=== PATIENT | male | born 1995 | race Caucasian/White ===

== ENCOUNTER 2019-11-22 01:15 | Emergency (ER) | payer MEDICAID ==
[~2019-11-22] VITALS: Ht 190.5 cm; Wt 109.0 kg
[2019-11-22 01:18] VITALS: BP 139/91
[2019-11-22] MEDS ORDERED: CLIN150C8 PO (01:31)
[2019-11-22] MEDS ORDERED: HYDR-3965 PO (01:31)
[2019-11-22] MEDS ORDERED: HYDROcodone/acetaminophen 5mg/325mg tablet PO ONE (01:35)
== END 2019-11-22 01:45 | disposition home or self-care (01) ==
LOC: ER 01:16
DX: K02.9 Dental caries, unspecified (principal); K08.89 Other specified disorders of teeth and supporting structures; F12.90 Cannabis use, unspecified, uncomplicated
CPT/HCPCS: 99283

== ENCOUNTER 2025-04-27 00:38 | Emergency (ER) | payer MEDICAID ==
[~2025-04-27] VITALS: Ht 190.5 cm; Wt 127.0 kg
[~2025-04-27 00:38] MED LIST: CLIN-214 PO
[2025-04-27 01:25] LABS: MEAN PLATELET VOLUME 6.7 FL (7.4-10.4); RED CELL DISTRIBUTION WIDTH 14.2 % (11.5-14.5)
--- NOTE | 2025-04-27 01:30 | RADIOLOGY REPORT ---
CHEST RADIOGRAPH Indication: CP Technique: Single frontal view of the chest was obtained COMPARISON: None FINDINGS: Lines and Tubes: None Lungs: No evidence of consolidation. Minimal left basilar atelectasis. Pleura: No effusion. No pneumothorax. Cardiomediastinal contours: Unremarkable Bones: Unremarkable IMPRESSION: 1. No acute disease. Minimal left basilar atelectasis.
[2025-04-27 01:38] LABS: CREATININE 0.94 MG/DL (0.60-1.10); PRO BRAIN NATRIURETIC PEPTIDE 41 PG/ML (0-125); TOTAL CARBON DIOXIDE 31.2 MMOL/L (24-32); eCRCL 137 ML/MIN; eGFR > 90 ML/MIN
--- NOTE | 2025-04-27 06:16 | Physician Documentation ---
History of Present Illness ~ Chief Complaint: Chest Pain Stated Complaint: CHEST DISCOMFORT Time Seen by MD: 06:15 Primary Medical Doctor: LORENA JONES Mode of Arrival: EMS HPI 29-year-old gentleman presenting with epigastric abdominal pain that started about 11:00 p.m. last night. He states that he would radiate slightly up into his chest. He states that yesterday he took several shots of liquor and also took a hit from his marijuana Bong. States that the pain was concerning so he came to the ED. The pain was sharp and did not relent. Patient was able to sleep in the ED for several hours before being seen and states that now his pain has resolved. Reports that she does have a history of a hiatal hernia, gastritis and Carlson's esophagus and takes Protonix regularly and also follows with a GI specialist. No reports of any nausea, vomiting, fever, chills or any other associated symptoms. Medication Reconciliation Allergies: Coded Allergies: No Known Allergies (Unverified , 04/27/25) Scheduled Clindamycin HCl (Clindamycin HCl CAPSULE), 1 CAP PO TID Past Medical History Past Medical History: *GI/HEPATOBILIARY*, Gastritis, GERD Alcohol Use: Occasionally Drug Use: marijuana Lives with: Family Lives In: Home Review of Systems All Other Systems at this time: Reviewed and Negative Physical Exam Vital Signs: Temperature: 98.0, Heart Rate: 68, Respiratory Rate: 12, BP: 126/80, Pulse Oximetry: 96, Weight: 127.000 Oxygen Flow Rate: 0 Physical Exam I have reviewed the triage vitals. CONST: Well developed and well nourished. In no acute distress HENT: Head Atraumatic EYES: Pupils are equal, round and reactive to light. Normal conjunctiva NECK: Normal range of motion. Supple. CARDIO: Normal rate and regular rhythm. No murmurs, rubs, or gallops. S1, S2. PULM/CHEST: No respiratory distress. Lungs clear to auscultation. No wheeze ABD: Soft and nontender. Nondistended. Bowel sounds normal. No guarding. : Exam deferred MSK: No edema. No deformity. NEURO: Alert and oriented to person, place and time. Moving all extremities SKIN: Warm and dry. PSYCH: Normal mood and affect. Good eye contact. Progress Results/Orders Results/Orders Completed Orders - BRITTNEY ROMERO MD Potassium Cl Sr Tablet (K-Dur Tablet) (04/27/25 06:53) Vital Signs 04/27/25 04/27/25 04/27/25 04/27/25 00:49 02:43 03:49 07:12 Temp 98.0 98.0 Pulse 79 68 68 Resp 20 16 12 12 B/P (MAP) 127/89 126/80 (95) 146/85 Pulse Ox 94 96 97 O2 Flow Rate 0 Laboratory Tests Test 04/27/25 00:59 04/27/25 02:41 04/27/25 06:10 White Blood Count 9.2 Red Blood Count 4.61 L Hemoglobin 15.4 Hematocrit 43.8 Mean Corpuscular Volume 95.1 Mean Corpuscular Hemoglobin 33.3 H Mean Corpuscular Hemoglobin Concent 35.1 Red Cell Distribution Width 14.2 Platelet Count 286 Mean Platelet Volume 6.7 L Neutrophils (%) (Auto) 57.1 Lymphocytes (%) (Auto) 33.0 Monocytes (%) (Auto) 7.1 Eosinophils (%) (Auto) 1.9 Basophils (%) (Auto) 0.9 Neutrophils # (Auto) 5.3 Lymphocytes # (Auto) 3.0 Monocytes # (Auto) 0.7 Eosinophils # (Auto) 0.2 Basophils # (Auto) 0.1 CBC Comment Sodium Level 138 Potassium Level 3.2 L Chloride Level 100 Carbon Dioxide Level 31.2 Anion Gap 7 L Blood Urea Nitrogen 13 Creatinine 0.94 Estimated GFR/1.73 m2 > 90 BUN/Creatinine Ratio 13.8 Glucose Level 94 Calcium Level 8.5 Troponin I High Sensitivity 6 6 6 Pro-B-Type Natriuretic Peptide 41 Albumin 4.0 Chemistry Comments Troponin I High Sens Percent Delta 0 0 Troponin I Hi Sens Absolute Change 0 0 EKG/XRAY/CT/US/VASC/MRI EKG : Additional Comment EKG as interpreted by ED MD indicating normal sinus rhythm with a rate of 75 beats per minute, normal axis, no ischemia Medical Decision Making Additional Information This is a 29-year-old male presenting with epigastric abdominal pain. His lab workup is indicative only of a low potassium level of 3.2. This was replaced with 40 mEq of potassium chloride. P.o. The remainder of his lab work including three rounds of troponins are normal. Additionally he had an EKG which was unremarkable. The patient's symptoms self-resolved in her my assessment he was symptom free. His vitals are also normal. Given his history of a hiatal hernia, Carlson's esophagus and gastritis with some GERD I suspect that this is the likely etiology for his symptoms once again especially given the fact that he used some liquor and marijuana yesterday which provoked his symptoms. I advised the patient to abstain from further alcohol or drug use as this is worsening the issue especially given his history. He was recommended to continue with his Protonix and follow up closely with his GI specialist as well for monitoring of his Carlson's esophagus. But this point in time the patient is stable and safe to be discharged home. Advised to follow up with his primary care physician and return to the ED with any acutely worsening symptoms. Departure Disposition: 01 HOME / SELF CARE / HOMELESS Impression: Primary Impression: Gastritis Additional Impression: GERD (gastroesophageal reflux disease) Condition: Improved Discharge Instructions: Gastritis, Adult Additional Instructions: Please continue with your Protonix. 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 Please abstain from further alcohol use. Return to the emergency department immediately with any acutely worsening symptoms. Referrals: NO PRIMARY CARE PROVIDER (PCP) Signature Scribe Signature: 1 Attestation: 1 BRITTNEY ROMERO MD Apr 27, 2025 06:16
[2025-04-27] MEDS: potassium Cl 20 mEq SR tablet PO STA (07:08)
--- NOTE | 2025-04-27 07:09 | ELECTROCARDIOGRAPH REPORT ---
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
[2025-04-27 07:12] VITALS: BP 146/85; PULSE 68; RESP 12; TEMP 98; O2SAT 97
== END 2025-04-27 07:14 | disposition home or self-care (01) ==
LOC: ER 00:38
DX: K21.9 Gastro-esophageal reflux disease without esophagitis (principal); K29.70 Gastritis, unspecified, without bleeding; F12.90 Cannabis use, unspecified, uncomplicated; Z72.89 Other problems related to lifestyle
CPT/HCPCS: 36415; 71045; 80048; 83880; 84484; 85025; 93005; 99285

== ENCOUNTER 2025-05-20 11:34 | Emergency (ER) | payer MEDICAID ==
[~2025-05-20] VITALS: Ht 190.5 cm; Wt 129.6 kg
[2025-05-20 11:41] VITALS: BP 135/94; PULSE 101; RESP 18; O2SAT 98
[2025-05-20] MEDS: triamcinolone acetonide 40mg/ml inj IM ONE (11:57)
--- NOTE | 2025-05-20 12:09 | Physician Documentation ---
History of Present Illness ~ Chief Complaint: Rash Stated Complaint: EYE SWELLING Time Seen by MD: 11:51 Primary Medical Doctor: LORENA JONES HPI 30-year-old gentleman that her friends it presents to the emergency department for evaluation of poison oak sustained while camping and mild shortness of breath. Medication Reconciliation Allergies: Coded Allergies: No Known Allergies (Unverified , 05/20/25) Scheduled Clindamycin HCl (Clindamycin HCl CAPSULE), 1 CAP PO TID Past Medical History Past Medical History: *GI/HEPATOBILIARY*, Gastritis, GERD Alcohol Use: Occasionally Drug Use: marijuana Lives with: Family Lives In: Home Review of Systems ROS As stated above in the HPI, otherwise all systems are reviewed and negative. Physical Exam Vital Signs: Temperature: 100.5, Source: Oral, Heart Rate: 101, Respiratory Rate: 18, BP: 135/94, Pulse Oximetry: 98, Weight: 129.600 Oxygen Flow Rate: 0 Physical Exam VITALS: Reviewed and as above. GENERAL: Alert, no apparent distress. HEENT: Normocephalic, atraumatic, PERRL, EOMI, dry mucosa, no erythema RESPIRATORY: Lungs clear, normal breath sounds, no respiratory distress. CHEST: No accessory muscle use, no retractions CV: Regular rate, rhythm, no edema, no murmur, No: JVD GI: Soft, non-tender, bowels sounds present, no rebound, guarding, or rigidity BACK: No CVA tenderness, or swelling MUSCULOSKELETAL No deformities, no edema SKIN: Warm and dry, diffuse erythematous rash consistent with poison oak over face trunk upper extremities. 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 Chest,Two Views (05/20/25 12:09) Completed Orders - ROSMERY BARCENAS RAW MATERIAL HANDLER Triamcinolone Acet 40mg/Ml Inj (Kenalog- (05/20/25 11:55) Chest,Two Views (05/20/25 12:09) Medications Received in ER Medications (Trade) Dose Ordered Sig/Carolann Route PRN Reason Start Time Stop Time Status Last Admin Dose Admin (Kenalog-40 inj) 40 mg ONCE ONCE IM 05/20/25 11:55 05/20/25 11:56 DC 05/20/25 11:57 40 MG Vital Signs 05/20/25 11:41 Temp 100.5 Pulse 101 Resp 18 B/P (MAP) 135/94 Pulse Ox 98 O2 Flow Rate 0 Medical Decision Making Findings This patient who presents with rash for _, consistent with _. History and exam findings not consistent with dangerous etiologies of rash such as SJS/TEN, or secondary dangerous causes such as petechial rashes from thrombocytopenia or rickettsial infections. Rash does not appear urticarial with no signs of anaphylaxis either. Plan at this time is to treat symptomatically, instruct to follow up with PCP or derm PRN. Differential Dx:Considerations: Include: Abscess, AIDS/HIV, Anthrax (cutaneous), Atopic dermatitis, Candidiasis, Contact dermatitis, Drug reaction, Erythema multiforme, Erysipelas, Gangrene, Herpes zoster, Herpes simplex, Hidradenitis suppurativa, Impetigo, Intertrigo, Lymes disease, Molluscum contagiosum, Osteomyelitis, Pediculosis, Pityriasis rosea, Psoriaisis, RMSF, Rosacea, Scabies, Scarlet fever, Tinea, Urticaria, Varicella, Viral exanthema, Other Departure Disposition: HOME / SELF CARE / HOMELESS Impression: Primary Impression: Allergic contact dermatitis Condition: Stable Discharge Instructions: Contact Dermatitis Additional Instructions: For poison oak exposure. Provided with a Kenalog injection given instructions to take Benadryl and ibuprofen as needed. Follow up with her primary care provider. Return to the emergency department if you have any worsening of symptoms i.e. in your eyes in her mouth difficulty breathing or any additional concerning symptoms that we discussed here today. Departure Forms: Excuse form Work or School Excused From: Work Excuse beginning now through the following date: May 20, 2025 May Return but still avoid physical Activity from now until: May 23, 2025 Referrals: NO PRIMARY CARE PROVIDER (PCP) Education Educated: Patient Educated regarding: treatment, need for follow up Signature Scribe Signature: . Attestation: Scribed for Rosmery Barcenas by MOISES Colón . 05/20/25 12:46 ROSMERY BARCENAS May 20, 2025 12:09
--- NOTE | 2025-05-20 12:34 | RADIOLOGY REPORT ---
CHEST RADIOGRAPH Indication: SOB. Asthmatic Technique: Frontal and lateral view of the chest was obtained Comparison: DI CHEST,SINGLE VIEW on DOS: 04/27/25 FINDINGS: Lines and Tubes: None Lungs: Clear Pleura: No effusion. No pneumothorax. Cardiomediastinal contours: Unremarkable Bones: Unremarkable IMPRESSION: No evidence of acute disease.
[2025-05-20 13:11] VITALS: TEMP 100.5
== END 2025-05-20 13:14 | disposition home or self-care (01) ==
LOC: ER 11:34
DX: L23.7 Allergic contact dermatitis due to plants, except food (principal); R06.02 Shortness of breath; F12.90 Cannabis use, unspecified, uncomplicated
CPT/HCPCS: 71046; 96372; 99283; J3301

== ENCOUNTER 2025-05-21 19:48 | Emergency (ER) | payer MEDICAID ==
[~2025-05-21] VITALS: Ht 190.5 cm; Wt 129.6 kg
[2025-05-22 00:37] VITALS: BP 124/91; PULSE 98; RESP 16; TEMP 98.5; O2SAT 99
--- NOTE | 2025-05-22 08:12 | ELECTROCARDIOGRAPH REPORT ---
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
== END 2025-05-22 03:47 | disposition left against medical advice (07) ==
LOC: ER 19:49
DX: R07.89 Other chest pain (principal); F41.9 Anxiety disorder, unspecified; Z53.21 Procedure and treatment not carried out due to patient leaving prior to being seen by health care provider
CPT/HCPCS: 93005